=== PATIENT | female | born 1950 | race Caucasian/White ===

== ENCOUNTER → 2024-11-18 | Outpatient (CLI) | payer MEDICARE, MEDICAID, SELFPAY ==
[2024-11-18 10:20] LABS: Basophils % (Auto) 1 % (0-2.5); Eosinophils # (Auto) 0.1 Thou/mm3 (0.0-0.5); Eosinophils % (Auto) 1 % (0-10); Hematocrit 40.9 % (36.0-46.0); Hemoglobin 13.7 g/dL (12.0-16.0); Immature Granulocytes % (Auto) 0 % (0-0); Immature Granulocytes Auto 0.02 Thou/mm3 (0.00-0.00); Lymphocytes # (Auto) 1.8 Thou/mm3 (1.0-4.8); Lymphocytes % (Auto) 35 % (10-50); Mean Corpuscular HGB Conc 33.5 g/dl (31.0-37.0); Mean Corpuscular Hemoglobin 30.4 pg (25.0-35.0); Mean Corpuscular Volume 91 fL (80-100); Monocytes # (Auto) 0.3 Thou/mm3 (0.0-0.8); Monocytes % (Auto) 6 % (0-12); Neutrophils # (Auto) 2.9 Thou/mm3 (1.8-7.7); Neutrophils % (Auto) 56 % (37-80); Nucleated Red Blood Cell % 0 /100 WBC (0); Platelet Count 248 Thou/mm3 (140-440); RDW Standard Deviation 41.3 fL (36.4-46.3); White Blood Count 5.2 Thou/mm3 (3.6-11.0)
[2024-11-18 10:38] LABS: Alanine Aminotransferase 12 U/L (10-49); Albumin, Serum 4.1 gm/dL (3.4-4.8); Albumin/Globulin Ratio 1.8 (1.2-2.2); Alkaline Phosphatase 75 U/L (46-116); Anion Gap 6 (7-16); Aspartate Amino Transferase 15 U/L (0-34); BUN/Creatinine Ratio 24 Ratio (12-20); Bilirubin,Total 0.8 mg/dL (0.3-1.2); Blood Urea Nitrogen 22 mg/dL (9-23); Calcium 9.4 mg/dL (8.3-10.6); Calcium (Corrected) 9.4 mg/dL (8.5-10.1); Carbon Dioxide 28.6 mMol/L (20.0-31.0); Cardiac Risk Estimate 3.6 RATIO (3.7-5.6); Chloride 110 mMol/L (98-107); Cholesterol 197 mg/dL (132-200); Creatinine (Component) 0.9 mg/dL (0.6-1.3); Globulin 2.3 gm/dL (2.3-3.5); Glucose 93 mg/dL (74-106); HDL Cholesterol 55 mg/dL (40-60); LDL Cholesterol,Calculated 129 mg/dL (0-130); Osmolality,Calculated 292 (275-295); Potassium 4.3 mMol/L (3.4-5.1); Sodium 145 mMol/L (136-145); Thyroid Stimulating Hormone 0.49 uIU/mL (0.55-4.78); Total Protein 6.4 gm/dL (5.7-8.2); Triglycerides 65 mg/dL (30-150); eGFR > 60 See Note
[2024-11-18 11:11] LABS: Hepatitis C Antibody Non Reactive (Non React); Vitamin D 25 Hydroxy Total 84.2 ng/mL (7.3-40.2)
== END | disposition home or self-care (01) ==
LOC: COPL 09:27
PROVIDERS: PCP Family Medicine; Referring Provider Family Medicine; Visit Provider Family Medicine
DX: E04.1 Nontoxic single thyroid nodule (principal); E78.5 Hyperlipidemia, unspecified; R53.83 Other fatigue; E55.9 Vitamin D deficiency, unspecified; Z11.59 Encounter for screening for other viral diseases
CPT/HCPCS: 36415; 80053; 80061; 82306; 83036; 84443; 85025; 86803

== ENCOUNTER → 2024-11-29 | Outpatient (CLI) | payer MEDICARE, MEDICAID, SELFPAY ==
[2024-11-29 12:19] LABS: Free T4 (Free Thyroxine) 1.19 ng/dL (0.89-1.76); Thyroid Stimulating Hormone 0.47 uIU/mL (0.55-4.78)
[2024-12-05 07:25] LABS: T3,Total* 78 ng/dL (76-181); TSI, Thyroid Stimulating Ig* <89 % baseline (<140); Thyrotropin-Binding Inhib Ig* <1.00 IU/L (< OR = 2.00)
== END | disposition home or self-care (01) ==
LOC: COPL 11:05
PROVIDERS: Referring Provider Family Medicine; Visit Provider Family Medicine
DX: E05.90 Thyrotoxicosis, unspecified without thyrotoxic crisis or storm (principal)
CPT/HCPCS: 36415; 83519; 84439; 84443; 84445; 84480

== ENCOUNTER → 2025-04-09 | Outpatient (CLI) | payer MEDICARE, MEDICAID, SELFPAY ==
--- NOTE | 2025-04-09 10:30 | XR_ITS ---
Examination: Screening digital mammography, bilateral Computer aided detection 3-D breast Tomosynthesis, bilateral Date and time of exam: April 09, 2025 1021 hours Compared to mammograms dating to May 21, 2020 Indication: Screening Technique: Nonmagnified MLO, CC views of the breasts to been obtained, reconstructed from 3-D Tomosynthesis images. R2 computer aided detection program utilized for evaluation of suspicious masses and/or abnormal calcifications. 3-D Tomosynthesis images obtained. Findings: The breasts are heterogeneously dense, which may obscure small masses 10 mm nodule 9:00 position right breast Benign calcifications Impression: BI-RADS Category 0: Incomplete: Need additional imaging evaluation Recommend follow-up spot tomographic views of 10 mm nodule 9:00 position right breast as well as bilateral breast sonography to complete the workup
== END | disposition home or self-care (01) ==
LOC: CDIM 10:11
PROVIDERS: Referring Provider Family Medicine; Visit Provider Family Medicine
DX: Z12.31 Encounter for screening mammogram for malignant neoplasm of breast (principal); N63.15 Unspecified lump in the right breast, overlapping quadrants
CPT/HCPCS: 77063; 77067

== ENCOUNTER → 2025-05-21 | Outpatient (CLI) | payer MEDICARE, MEDICAID, SELFPAY ==
[2025-05-21 09:56] LABS: Free T4 (Free Thyroxine) 1.30 ng/dL (0.89-1.76); Thyroid Stimulating Hormone 0.57 uIU/mL (0.55-4.78)
== END | disposition home or self-care (01) ==
LOC: COPL 08:29
PROVIDERS: PCP Family Medicine; Referring Provider Family Medicine; Visit Provider Family Medicine
DX: E05.90 Thyrotoxicosis, unspecified without thyrotoxic crisis or storm (principal)
CPT/HCPCS: 36415; 84439; 84443

== ENCOUNTER → 2025-06-19 | Outpatient (CLI) | payer MEDICARE, MEDICAID, SELFPAY ==
--- NOTE | 2025-06-19 11:30 | XR_ITS ---
Examination: Breast ultrasound complete, bilateral Date and time of exam: June 19, 2025, 1155 hours INDICATIONS: Mammogram April 09, 2000 2510 mm nodule 9 o'clock position right breast Technique: Real-time grayscale ultrasonographic imaging bilateral breasts, including all 4 quadrants as well as nipple retroareolar and axillary regions. Findings: Sonographic images right breast 2:00 cyst 6 x 5 mm 11:00 nodule lobular margins 9 x 8 mm 24 mm right axillary lymph node Left breast no cystic or solid mass 21 mm 26 mm axillary lymph nodes IMPRESSION: BI-RADS Category 3: Probably benign findings 1 additional 6-month right breast sonogram follow-up is needed to document stability of 11:00 nodule described above
== END | disposition home or self-care (01) ==
PROVIDERS: PCP Family Medicine; Referring Provider Family Medicine; Visit Provider Family Medicine
DX: R92.333 Mammographic heterogeneous density, bilateral breasts (principal); N63.11 Unspecified lump in the right breast, upper outer quadrant
CPT/HCPCS: 76641

== ENCOUNTER → 2025-07-10 | Outpatient (CLI) | payer MEDICARE, MEDICAID, SELFPAY ==
--- NOTE | 2025-07-10 15:30 | XR_ITS ---
EXAMINATION: Thyroid sonography complete TECHNIQUE: Grayscale sonographic images thyroid lobes Date and time: July 10, 2025, 1533 hours, comparison February 16, 2024 INDICATIONS: Bilateral thyroid nodules February 16, 2024, 17 mm upper pole right thyroid 30 mm mid pole lower pole 32 mm, isthmus 10 mm 6 mm 10 mm left thyroid upper pole 21 mm mid pole 22 mm lower pole 16 mm, neck pain 1 year FINDINGS: Right thyroid 5.3 cm Upper pole nodule 15 x 20 mm Midpole nodule is 18 x 18 mm, 32 x 32 mm, Lower pole nodule 19 x 19 mm Isthmus nodule 13 x 10 mm Left thyroid 5.2 cm Upper pole nodule 28 x 24 mm Midpole nodule 21 x 23 mm Lower pole nodule 22 x 12 mm IMPRESSION: Multiple thyroid nodules as above,. Consider ultrasound-guided fine-needle aspiration of the mid pole right thyroid nodule 32 x 26 mm and the upper pole left thyroid nodule 28 x 24 mm
== END | disposition home or self-care (01) ==
LOC: CDIM 15:14
PROVIDERS: PCP Family Medicine; Referring Provider Family Medicine; Visit Provider Family Medicine
DX: E04.2 Nontoxic multinodular goiter (principal)
CPT/HCPCS: 76536